=== PATIENT | female | born 1965 | race Caucasian/White ===

== ENCOUNTER → 2018-08-07 | Outpatient (CLI) | payer OTHER | LOC: M.WC 07:47 | DX: I87.332 Chronic venous hypertension (idiopathic) with ulcer and inflammation of left lower extremity (principal); L97.822 Non-pressure chronic ulcer of other part of left lower leg with fat layer exposed; G90.522 Complex regional pain syndrome I of left lower limb; J45.909 Unspecified asthma, uncomplicated; J45.40 Moderate persistent asthma, uncomplicated; K51.90 Ulcerative colitis, unspecified, without complications; K21.9 Gastro-esophageal reflux disease without esophagitis ==

== ENCOUNTER → 2018-08-14 | Outpatient (CLI) | payer OTHER | LOC: M.WC 04:43 | DX: I87.332 Chronic venous hypertension (idiopathic) with ulcer and inflammation of left lower extremity (principal); L97.822 Non-pressure chronic ulcer of other part of left lower leg with fat layer exposed; G90.522 Complex regional pain syndrome I of left lower limb; J45.40 Moderate persistent asthma, uncomplicated; J30.1 Allergic rhinitis due to pollen; K21.9 Gastro-esophageal reflux disease without esophagitis ==

== ENCOUNTER → 2018-08-21 | Outpatient (CLI) | payer OTHER | LOC: M.WC 05:43 | DX: I87.332 Chronic venous hypertension (idiopathic) with ulcer and inflammation of left lower extremity (principal); L97.822 Non-pressure chronic ulcer of other part of left lower leg with fat layer exposed; G89.4 Chronic pain syndrome; G90.522 Complex regional pain syndrome I of left lower limb; K21.9 Gastro-esophageal reflux disease without esophagitis; J45.40 Moderate persistent asthma, uncomplicated; J30.1 Allergic rhinitis due to pollen ==

== ENCOUNTER → 2018-08-28 | Outpatient (CLI) | payer OTHER | LOC: M.WC 04:35 | DX: S81.802D Unspecified open wound, left lower leg, subsequent encounter (principal); G90.522 Complex regional pain syndrome I of left lower limb; J45.40 Moderate persistent asthma, uncomplicated; K21.9 Gastro-esophageal reflux disease without esophagitis; W22.8XXD Striking against or struck by other objects, subsequent encounter ==

== ENCOUNTER → 2018-10-29 | Outpatient (CLI) | payer OTHER | LOC: M.WC 08:00 | DX: I87.332 Chronic venous hypertension (idiopathic) with ulcer and inflammation of left lower extremity (principal); L97.822 Non-pressure chronic ulcer of other part of left lower leg with fat layer exposed; G90.522 Complex regional pain syndrome I of left lower limb; J45.40 Moderate persistent asthma, uncomplicated; J30.1 Allergic rhinitis due to pollen; K21.9 Gastro-esophageal reflux disease without esophagitis ==

== ENCOUNTER → 2018-11-05 | Outpatient (CLI) | payer OTHER | LOC: M.WC 04:28 | DX: I87.332 Chronic venous hypertension (idiopathic) with ulcer and inflammation of left lower extremity (principal); L97.822 Non-pressure chronic ulcer of other part of left lower leg with fat layer exposed; G89.4 Chronic pain syndrome; G90.522 Complex regional pain syndrome I of left lower limb; J45.40 Moderate persistent asthma, uncomplicated; J30.1 Allergic rhinitis due to pollen; K21.9 Gastro-esophageal reflux disease without esophagitis ==

== ENCOUNTER → 2018-11-12 | Outpatient (CLI) | payer OTHER | LOC: M.WC 04:46 | DX: I87.332 Chronic venous hypertension (idiopathic) with ulcer and inflammation of left lower extremity (principal); L97.821 Non-pressure chronic ulcer of other part of left lower leg limited to breakdown of skin; G90.522 Complex regional pain syndrome I of left lower limb; J45.40 Moderate persistent asthma, uncomplicated; J30.1 Allergic rhinitis due to pollen; K21.9 Gastro-esophageal reflux disease without esophagitis; Z68.25 Body mass index [BMI] 25.0-25.9, adult ==

== ENCOUNTER → 2018-11-19 | Outpatient (CLI) | payer OTHER | LOC: M.WC 05:10 | DX: I87.332 Chronic venous hypertension (idiopathic) with ulcer and inflammation of left lower extremity (principal); L97.822 Non-pressure chronic ulcer of other part of left lower leg with fat layer exposed; G90.522 Complex regional pain syndrome I of left lower limb; J45.40 Moderate persistent asthma, uncomplicated; J30.1 Allergic rhinitis due to pollen; K21.9 Gastro-esophageal reflux disease without esophagitis ==

== ENCOUNTER → 2018-11-26 | Outpatient (CLI) | payer OTHER | LOC: M.WC 04:36 | DX: I87.332 Chronic venous hypertension (idiopathic) with ulcer and inflammation of left lower extremity (principal); L97.821 Non-pressure chronic ulcer of other part of left lower leg limited to breakdown of skin; G90.522 Complex regional pain syndrome I of left lower limb; J45.40 Moderate persistent asthma, uncomplicated; J30.1 Allergic rhinitis due to pollen; K21.9 Gastro-esophageal reflux disease without esophagitis ==

== ENCOUNTER → 2019-05-28 | Outpatient (CLI) | payer OTHER | LOC: M.WC 08:00 | DX: I87.312 Chronic venous hypertension (idiopathic) with ulcer of left lower extremity (principal); L97.822 Non-pressure chronic ulcer of other part of left lower leg with fat layer exposed; G47.00 Insomnia, unspecified; G90.522 Complex regional pain syndrome I of left lower limb; J45.909 Unspecified asthma, uncomplicated; K21.9 Gastro-esophageal reflux disease without esophagitis ==

== ENCOUNTER → 2019-06-04 | Outpatient (CLI) | payer OTHER | LOC: M.WC 01:46 | DX: I87.312 Chronic venous hypertension (idiopathic) with ulcer of left lower extremity (principal); L97.822 Non-pressure chronic ulcer of other part of left lower leg with fat layer exposed; G47.00 Insomnia, unspecified; G90.522 Complex regional pain syndrome I of left lower limb; J45.909 Unspecified asthma, uncomplicated; K21.9 Gastro-esophageal reflux disease without esophagitis ==

== ENCOUNTER → 2019-06-11 | Outpatient (CLI) | payer OTHER | LOC: M.WC 04:38 | DX: I87.312 Chronic venous hypertension (idiopathic) with ulcer of left lower extremity (principal); L97.812 Non-pressure chronic ulcer of other part of right lower leg with fat layer exposed; G47.00 Insomnia, unspecified; G90.522 Complex regional pain syndrome I of left lower limb; J45.909 Unspecified asthma, uncomplicated ==

== ENCOUNTER → 2019-06-18 | Outpatient (CLI) | payer OTHER | LOC: M.WC 04:56 | DX: I87.312 Chronic venous hypertension (idiopathic) with ulcer of left lower extremity (principal); L97.821 Non-pressure chronic ulcer of other part of left lower leg limited to breakdown of skin; G90.522 Complex regional pain syndrome I of left lower limb; G47.00 Insomnia, unspecified; J45.909 Unspecified asthma, uncomplicated; K21.9 Gastro-esophageal reflux disease without esophagitis ==

== ENCOUNTER → 2019-06-25 | Outpatient (CLI) | payer OTHER | LOC: M.WC 05:12 | DX: I87.312 Chronic venous hypertension (idiopathic) with ulcer of left lower extremity (principal); L97.822 Non-pressure chronic ulcer of other part of left lower leg with fat layer exposed; G90.522 Complex regional pain syndrome I of left lower limb; G47.00 Insomnia, unspecified; J45.909 Unspecified asthma, uncomplicated; K21.9 Gastro-esophageal reflux disease without esophagitis ==

== ENCOUNTER → 2019-07-07 | Outpatient (CLI) | payer OTHER | LOC: M.WC 03:58 | DX: I87.312 Chronic venous hypertension (idiopathic) with ulcer of left lower extremity (principal); L97.322 Non-pressure chronic ulcer of left ankle with fat layer exposed; G90.522 Complex regional pain syndrome I of left lower limb; G47.00 Insomnia, unspecified; J45.909 Unspecified asthma, uncomplicated; K21.9 Gastro-esophageal reflux disease without esophagitis ==

== ENCOUNTER → 2019-07-15 | Outpatient (CLI) | payer OTHER | LOC: M.WC 05:27 | DX: I87.312 Chronic venous hypertension (idiopathic) with ulcer of left lower extremity (principal); L97.822 Non-pressure chronic ulcer of other part of left lower leg with fat layer exposed; G90.522 Complex regional pain syndrome I of left lower limb; J45.909 Unspecified asthma, uncomplicated ==

== ENCOUNTER → 2019-07-20 | Outpatient (CLI) | payer OTHER | LOC: M.WC 04:51 | DX: I87.312 Chronic venous hypertension (idiopathic) with ulcer of left lower extremity (principal); L97.821 Non-pressure chronic ulcer of other part of left lower leg limited to breakdown of skin; L03.116 Cellulitis of left lower limb; G90.522 Complex regional pain syndrome I of left lower limb; G47.00 Insomnia, unspecified; J45.909 Unspecified asthma, uncomplicated; K21.9 Gastro-esophageal reflux disease without esophagitis ==

== ENCOUNTER → 2019-07-23 | Outpatient (CLI) | payer OTHER | LOC: M.WC 04:56 | DX: I87.312 Chronic venous hypertension (idiopathic) with ulcer of left lower extremity (principal); L97.521 Non-pressure chronic ulcer of other part of left foot limited to breakdown of skin; L03.116 Cellulitis of left lower limb; G90.522 Complex regional pain syndrome I of left lower limb; G47.00 Insomnia, unspecified; J45.909 Unspecified asthma, uncomplicated; K21.9 Gastro-esophageal reflux disease without esophagitis ==

== ENCOUNTER → 2019-07-30 | Outpatient (CLI) | payer OTHER | LOC: M.WC 04:47 | DX: I87.312 Chronic venous hypertension (idiopathic) with ulcer of left lower extremity (principal); L97.821 Non-pressure chronic ulcer of other part of left lower leg limited to breakdown of skin; G90.522 Complex regional pain syndrome I of left lower limb; G47.00 Insomnia, unspecified; J45.909 Unspecified asthma, uncomplicated; K51.90 Ulcerative colitis, unspecified, without complications; K21.9 Gastro-esophageal reflux disease without esophagitis ==

== ENCOUNTER → 2019-08-05 | Outpatient (CLI) | payer OTHER | LOC: M.WC 08:00 | DX: I87.312 Chronic venous hypertension (idiopathic) with ulcer of left lower extremity (principal); L97.828 Non-pressure chronic ulcer of other part of left lower leg with other specified severity; G90.522 Complex regional pain syndrome I of left lower limb; J45.909 Unspecified asthma, uncomplicated; H26.9 Unspecified cataract; G47.00 Insomnia, unspecified ==